=== PATIENT | male | born 1965 | race Caucasian/White ===

== ENCOUNTER 2019-12-12 09:59 | Emergency (ER) | payer OTHER ==
[~2019-12-12] VITALS: Ht 180.3 cm; Wt 77.3 kg
[2019-12-12 11:05] LABS: STREP SCREEN NEGATIVE
[2019-12-12] MEDS ORDERED: CLEOCIN HCL300 MG PO (11:17)
[2019-12-12 11:42] VITALS: BP 120/63; PULSE 74; TEMP 98.3
== END 2019-12-12 11:42 | disposition home or self-care (01) ==
LOC: COL.ER 09:59
PROVIDERS: Physician Assistant
DX: J03.90 Acute tonsillitis, unspecified (principal)